=== PATIENT | male | born 1975 | race Caucasian/White ===

== ENCOUNTER 2020-09-06 14:23 | Outpatient (CLI) | payer MEDICARE, SELFPAY ==
--- NOTE | ~2020-09-06 | US_ITS ---
EXAMINATION: US knee asp inj w image RT DATE: 09/06/2020 16:58 INDICATION: Pyogenic arthritis with right knee pain TECHNIQUE: The procedure including the risks and benefits was discussed with the patient. Risks discu ssed included bleeding and infection. The patient understood the risks and agreed to proceed. The ski n overlying the right knee was prepped and draped in usual sterile fashion. Anesthetic was administe red with 1% lidocaine subcutaneously. An 21 gauge needle was advanced into the fluid collection at t he suprapatellar pouch utilizing continuous ultrasound guidance. 10 mm of turbid/cloudy yellowish flu id was aspirated and sent to the lab for Gram stain, cultures, cell count and crystal analysis. The needle was removed and the entry site was cleaned and dressed. Post procedure ultrasound demonstrate d no hemorrhage. FINDINGS: Ultrasound images demonstrate aspiration needle within a small amount of joint fluid at the suprapatellar pouch of the right knee. IMPRESSION: 1. Successful Ultrasound-guided right knee arthrocentesis. Reviewed, dictated and finalized at location A.
[2020-09-06 15:21] LABS: Basophils Absolute Auto 0.1 K/mm3 (0.0-0.1); Basophils Percent Auto 1.6 % (0.2-1.2); Eosinophils Absolute Auto 0.2 K/mm3 (0-0.3); Eosinophils Percent Auto 2.5 % (0-4.4); Hematocrit 44.8 % (42.0-52.0); Hemoglobin 15.5 g/dL (14.0-18.0); Immature Granulocyte Absolute 0.01 K/mm3 (0.00-0.031); Immature Granulocyte Percent A 0.1 % (0-0.5); Lymphocytes Absolute Auto 1.89 K/mm3 (0.9-3.2); Mean Corpuscular HGB Conc 34.6 g/dl (32-36); Mean Corpuscular Hemoglobin 32.8 pg (26-34); Mean Corpuscular Volume 94.9 fl (80-100); Mean Platelet Volume 9.7 fl (7.4-10.4); Monocytes Absolute Auto 0.4 K/mm3 (0.1-0.6); Monocytes Percent Auto 6.1 % (2.6-8.5); Neutrophils Absolute Auto 4.2 K/mm3 (1.3-6.7); Neutrophils Percent Auto 61.7 % (45.5-73.1); Platelet Count Result 276 k/mm3 (150-375); Red Blood Count 4.72 M/mm3 (4.6-6.20); Red Cell Distribution Width 13.1 % (11.5-14.5); White Blood Count 6.8 K/mm3 (4.5-10.0)
[2020-09-06 15:35] LABS: CRP < 0.5 mg/dL (<1.0)
[2020-09-06 15:45] LABS: Erythrocyte Sedimentation Rate 9 mm/hr (0-20)
== END 2020-09-06 14:24 | disposition home or self-care (01) ==
PROVIDERS: PCP Internal Medicine; Visit Provider Internal Medicine
DX: M00.861 Arthritis due to other bacteria, right knee (principal); M25.661 Stiffness of right knee, not elsewhere classified; M25.461 Effusion, right knee
CPT/HCPCS: 20611; 36415; 85025; 85652; 86140; 87070; 87075; 87205

== ENCOUNTER 2020-11-06 12:30 | Outpatient (RCR) | payer MEDICARE, SELFPAY ==
--- NOTE | 2020-10-04 11:41 | PTOPEVAL ---
Thank you for referring Clovis Rowan to [facility].? The patient is scheduled to be seen for therapy? 1-2 x/week for 5 weeks. Please review, sign, date and return this plan of care THADDEUS. I agree with and certify that the following plan of care is medically necessary. Referring Physician Date Attending Provider: Ajay Lang MD Physical therapy evaluation Diagnosis right knee pain Onset 07/12 Cause possible gout flare-up Additional Evaluation Detail drained fluid in August, cloudy Subjective Information Per pt and mother he has been Query Text:As Reported By Patient/ having knee pain since Jun Family 2020. He has fluid removed twice and injection. He c/o continued knee pain with limited motion. He drinks about 20 oz of water a day. He has a history of gout flare-ups which will affect any joint. Prior to Jun he was riding a stationary bike for 15 min. He does dancing or boxing exercise for 30 min a day. He plays violin and draws for prolonged period. Denies problem with steps, but he does a step together on steps. He was able to walk the other day without increased pain. Diagnostic Tests X-Rays For This Problem Yes: OA of knee Pain Assessment Self Report Pain Assessment Right Knee(s) Reported Pain Level 5 Pain Description Sharp Pain Frequency Chronic,Continuous Lowest Pain Intensity 4 Greatest Pain Intensity 7 Pain Score Pain Score 5: Self Report Lower Extremity Range of Motion Knee Range of Motion Right Knee Flexion Range of Motion - Active 96 Knee Extension Range of Motion - Active -15 Query Text: Lower Extremity Muscle Strength Testing Hip Strength Left Hip Flexion Strength 4 Good Hip Extension Strength 3 Fair Hip Abduction Strength 3+ Fair + Right Hip Flexion Strength 4- Good - Hip Extension Strength 3 Fair Hip Abduction Strength 3+ Fair + Knee Strength Right Knee Flexion Strength 4- Good - Knee Extension Strength 4- Good - Left Knee Flexion Strength 5 Normal Knee Extension Strength 5 Normal Muscle Length Testing Muscle Length Testing Two-Joint Hip Flexor Shortened Muscles Short (R) Ilio
--- NOTE | 2020-11-06 13:11 | PTOPEVAL ---
Thank you for referring Clovis Rowan to [facility].? Clovis has attended 6 therapy visits to address his LE limitations. He has partially achieved his therapy goals at this time. He demonstrates indep with his HEP. Will DC skilled therapy services at this time with patient having reached maximal potential with skilled services. Please review, sign, date and return this discharge summary THADDEUS. I agree with and certify that the following plan of care is medically necessary. Referring Physician Date Attending Provider: Ajay Lang MD Physical Therapy Discharge Note Diagnosis right knee pain Onset 07/12 Cause possible gout flare-up Additional Evaluation Detail drained fluid in August, cloudy Subjective Information He reports improved knee Query Text:As Reported By Patient/ motion without increased pain. Family He denies any limitation with use of Wii exercise activities. Denies problems with steps or walking. Pain Assessment Self Report Pain Assessment Right Knee(s) Reported Pain Level 0 Lower Extremity Range of Motion Right Knee Flexion Range of Motion - Active 115 Knee Extension Range of Motion - Active -3 Query Text: Lower Extremity Muscle Strength Testing Hip Strength Left Hip Flexion Strength 5 Normal Hip Extension Strength 4+ Good + Hip Abduction Strength 4- Good - Right Hip Flexion Strength 5 Normal Hip Extension Strength 4+ Good + Hip Abduction Strength 4- Good - Knee Strength Right Knee Flexion Strength 5 Normal Knee Extension Strength 5 Normal Left Knee Flexion Strength 5 Normal Knee Extension Strength 5 Normal Special Tests-Lower Extremity Hip Special Tests Trendelenburg Sign Positive Left,Positive Right Hip Special Test Comments Single leg stance: right 2-3 sec left: 1-2 sec Balance Assessment Time Up Go (TUG) Timed Up and Go Test (TUG) (Seconds) 10 Assistive Devices None 5 Time Sit to Stand Time in Seconds 12 5 Time Sit to Stand Comments = WB on right leg, without UE Gait assessment Gait Pattern Wide Based Gait Gait Pattern Observed Decreased Stride Length - Left ,Decreased Stride Length - Right,Decreased Weight Shift - Left,No Heel Strike - Left,No Heel Strike - Right Other Gait Observations hip ext rotation on right LE, lacks left UE arm swing 2 Minute Walk Total Distance Walked (feet) 400 2 Minute Walk Gait Speed Score (feet/ 3.33 second)
== END 2020-11-07 11:13 | disposition home or self-care (01) ==
LOC: ANHPT 12:30
PROVIDERS: PCP Internal Medicine; Visit Provider Orthopaedic Surgery
DX: M25.561 Pain in right knee (principal)
CPT/HCPCS: 97110; 97116; 97162; 97530

== ENCOUNTER 2021-09-03 15:13 | Outpatient (CLI) | payer MEDICARE, SELFPAY ==
--- NOTE | ~2021-09-03 | CT_ITS ---
EXAMINATION:CT diagnostic chest w con DATE: 09/03/2021 15:42 INDICATION: Localized enlarged lymph nodes. TECHNIQUE: Computed tomography (CT) of the chest was performed with 75 mL Omnipaque 350 intravenous c ontrast. Automated exposure control and iterative reconstruction technique were employed. The dose-le ngth product (DLP) was 287.86 mGy-cm. COMPARISON: None. FINDINGS: The lungs demonstrate mild atelectasis. No pleural effusion. There is a right posterior molly phragmatic hernia containing fat. There is a 2.9 cm cyst in left kidney. There is a small sliding hia andrew hernia. There is mild thoracic spondylosis. IMPRESSION: 1. No abnormal lymphadenopathy. Reviewed, dictated and finalized at location A.
== END 2021-09-03 15:14 | disposition home or self-care (01) ==
LOC: ANHIMG 15:13
PROVIDERS: PCP Internal Medicine; Visit Provider Internal Medicine
DX: R59.0 Localized enlarged lymph nodes (principal)
CPT/HCPCS: 71260; Q9967